=== PATIENT | female | born 1965 | race Caucasian/White ===

== ENCOUNTER → 2016-11-30 | Outpatient (CLI) | payer OTHER ==
[~2016-11-30] MED LIST: ASPIRIN 81M81 MG/TA2 PO; MULTIPLE VITAMI1 CAP PO; SYNTHROID0.075 MG/T PO; ZESTRIL 10MG10 MG PO
== END ==
LOC: MC.RAD 15:39
DX: Z12.31 Encounter for screening mammogram for malignant neoplasm of breast (principal)

== ENCOUNTER → 2018-05-01 | Outpatient (CLI) | payer OTHER | LOC: MC.RAD 09:45 | DX: Z12.31 Encounter for screening mammogram for malignant neoplasm of breast (principal); N63.21 Unspecified lump in the left breast, upper outer quadrant ==

== ENCOUNTER → 2018-05-07 | Outpatient (CLI) | payer OTHER | LOC: MC.RAD 08:59 | DX: Z12.31 Encounter for screening mammogram for malignant neoplasm of breast (principal); N60.02 Solitary cyst of left breast | CPT/HCPCS: G0279 ==

== ENCOUNTER → 2021-04-01 | Outpatient (CLI) | payer OTHER | LOC: MC.RAD 14:08 | DX: Z12.31 Encounter for screening mammogram for malignant neoplasm of breast (principal) ==

== ENCOUNTER → 2022-08-01 | Outpatient (CLI) | payer OTHER | LOC: MC.RAD 15:46 | DX: Z12.31 Encounter for screening mammogram for malignant neoplasm of breast (principal) ==

== ENCOUNTER → 2023-10-09 | Outpatient (CLI) | payer OTHER | LOC: MC.RAD 13:21 | DX: Z12.31 Encounter for screening mammogram for malignant neoplasm of breast (principal) ==